=== PATIENT | female | born 1935 | race Caucasian/White ===

== ENCOUNTER → 2016-11-27 | Outpatient (CLI) | payer MEDICARE ==
--- NOTE | 2016-11-27 16:43 | REP ---
Left shoulder series: Three views. History: Pain in the left upper arm. Findings: There is advanced diffuse osteopenia. There is narrowing of the subacromial space consistent with degeneration of the rotator cuff. Some irregularity is seen in the surface of the greater tuberosity of the proximal humerus and there are dystrophic soft tissue calcifications in the periarticular soft tissues. Also noted is mild glenohumeral spurring consistent with osteoarthritis. Impression: Extensive degenerative changes as above. Diffuse osteoporosis. Signed by Willy Goldman MD 11/27/2016 06:40 P
--- NOTE | 2016-11-27 16:45 | REP ---
Left humerus: Two views. History: Pain in the upper arm after a fall. Findings: Two views of the left humerus show no evidence of fracture or subluxation. Degenerative changes are seen in the shoulder as described in the shoulder radiographs. No fracture or subluxation is seen. Diffuse osteopenia is noted. Impression: No fracture noted. Signed by Willy Goldman MD 11/27/2016 06:40 P
== END ==
LOC: EDBD 14:04 → M ADAMS 14:04
PROVIDERS: ATTEND Physician Assistant
DX: M81.8 Other osteoporosis without current pathological fracture (principal); M25.712 Osteophyte, left shoulder